=== PATIENT | female | born 1965 | race Two or more races ===

== ENCOUNTER 2018-11-07 14:33 | Emergency (ER) | payer OTHER, BC ==
[2018-11-07] MEDS: KETOROLAC 30 MG INJ IM (16:23)
[2018-11-07] MEDS: DEXAMETHASONE 10 MG/ML 1 ML INJ IM (16:23)
== END 2018-11-07 17:40 | disposition home or self-care (01) ==
LOC: FTE 14:33
DX: M54.42 Lumbago with sciatica, left side (principal)
CPT/HCPCS: 96372; 99284-25